=== PATIENT | male | born 1980 | race African-American/Black ===

== ENCOUNTER 2017-02-22 20:54 | Emergency (ER) | payer OTHER ==
--- NOTE | ~2017-02-22 | CR94 ---
[facility] A Service of [facility] & [facility] RADIOLOGY TEXT RESULTS PATIENT: HUMBERTO KYLE LOCATION: CFTX : 84 UNIT #: [id number] AGE: [address]: Wang Gamez SEX: M ORDER DR: [id number] [facility] [address] [place], [place] [address] [id number] E MR#: [id number] Acc #: [id number] NAME: HUMBERTO KYLE : 1980 SEX: M STUDY DATE/TIME: 02/22/2017 21:13 UNIT: CFKY ROOM: STUDY DESCRIPTION: CR Elbow Min 3 Views Rt Attending Physician: Wang Gamez P.A.-C. Ordering Physician: Wang Gamez P.A.-C. Primary Care Physician: No Primary Care Physician MEDICAL IMAGING REPORT This report is preliminary unless electronic signature is present EXAM Right elbow 3 views HISTORY Elbow pain and swelling after a fall today FINDINGS AP and lateral examination of the elbow shows satisfactory articulation of the humerus with the proximal radius and ulna. There is no identifiable fracture, dislocation, joint effusion, or radiopaque foreign body in the soft tissues. IMPRESSION Normal elbow. Dictated by... Tae Friedman M.D. THIS IS AN ELECTRONICALLY VERIFIED REPORT Tae Friedman M.D. at 02/23/2017 3:59 PM DFL/yasir TD: 02/23/2017 08:46 JOB #: [id number] MEDICAL IMAGING REPORT Page 1 of 1 COPY
--- NOTE | ~2017-02-22 | CR132 ---
[facility] A Service of [facility] & [facility] RADIOLOGY TEXT RESULTS PATIENT: HUMBERTO KYLE LOCATION: CFTX : [birth year] UNIT #: [id number] AGE: [address]: Wang Gamez SEX: M ORDER DR: [id number] [facility] [address] [place], [place] [address] [id number] E MR#: [id number] Acc #: [id number] NAME: HUMBERTO KYLE : 1980 SEX: M STUDY DATE/TIME: 02/22/2017 21:12 UNIT: CFCA ROOM: STUDY DESCRIPTION: CR Forearm 2 View Lt Attending Physician: Wang Gamez P.A.-C. Ordering Physician: Wang Gamez P.A.-C. Primary Care Physician: Primary Care Physician No MEDICAL IMAGING REPORT This report is preliminary unless electronic signature is present EXAM Left forearm 2 views HISTORY Arm pain after fall today. FINDINGS 2 views of the left forearm demonstrate satisfactory bone alignment. No fracture, joint space narrowing or dislocation. No opaque soft tissue foreign body. IMPRESSION Negative. Dictated by... Tae Friedman M.D. THIS IS AN ELECTRONICALLY VERIFIED REPORT Tae Friedman M.D. at 02/23/2017 3:59 PM LEDA/janene TD: 02/23/2017 08:47 JOB #: [id number] MEDICAL IMAGING REPORT Page 1 of 1 COPY
== END 2017-02-22 22:37 | disposition home or self-care (01) ==
LOC: CFTX 20:54
DX: S50.12XA Contusion of left forearm, initial encounter (principal); S50.01XA Contusion of right elbow, initial encounter; F17.210 Nicotine dependence, cigarettes, uncomplicated; W19.XXXA Unspecified fall, initial encounter; Y92.009 Unspecified place in unspecified non-institutional (private) residence as the place of occurrence of the external cause
CPT/HCPCS: 73080; 73090; 99284